=== PATIENT | male | born 1955 | race Caucasian/White ===

== ENCOUNTER 2017-02-13 09:57 | Emergency (ER) | payer OTHER ==
[~2017-02-13] VITALS: Ht 170.1 cm; Wt 61.2 kg
[~2017-02-13 09:57] MED LIST: ATARAX,VISTARIL50 MG PO; KENALOG 0.1%80 GM PO; PREDNISONE10 MG PO
[2017-02-13] MEDS ORDERED: ZITHROMAX250 MG PO (10:54)
== END 2017-02-13 11:21 | disposition home or self-care (01) ==
LOC: ED 09:57
DX: J40 Bronchitis, not specified as acute or chronic (principal)

== ENCOUNTER → 2017-07-21 | Emergency (ER) | payer OTHER ==
[~2017-07-21] VITALS: Ht 170.1 cm; Wt 54.4 kg
[~2017-07-21] MED LIST changes: +ZITHROMAX250 MG PO
[2017-07-21 15:54] LABS: BASO % 0.2 % (0.0-1.0); EOS # 0.1 10*3/uL (0.0-0.4); EOS % 0.7 % (1.0-4.0); HEMATOCRIT 46.4 % (42.0-52.0); HEMOGLOBIN 15.4 g/dl (14.0-18.0); LYMPH # 1.9 10*3/uL (1.3-4.4); MEAN CELL VOLUME 94.1 fl (80.0-94.0); MEAN CORPUSCULAR HGB 31.2 pg (27.0-31.0); MEAN CORPUSCULAR HGB CONC 33.2 g/dl (33.0-37.0); MEAN PLATELET VOLUME 9.3 fl (9.6-12.3); MONO # 0.4 10*3/uL (0.1-1.0); MONO % 5.3 % (3.0-9.0); NEUT # 5.7 10*3/uL (2.3-7.9); NEUT % 70.6 % (47.0-73.0); PLATELET COUNT AUTOMATED 160 10*3/uL (130-400); RED BLOOD COUNT 4.93 10*6/uL (4.50-5.90); RED CELL DISTRI WIDTH 12.9 % (0-14.5); WHITE BLOOD COUNT 8.1 10*3/uL (4.8-10.8)
[2017-07-21 16:03] LABS: ACT PARTIAL THROMBO TIME 24.4 SECONDS (20.8-31.5)
[2017-07-21 16:09] LABS: ALBUMIN 4.4 gm/dl (3.1-4.5); ALKALINE PHOSPHATASE 90 U/L (45-117); BUN 8 mg/dl (7-24); CHLORIDE 108 mmol/L (98-107); MAGNESIUM 2.2 mg/dL (1.5-2.1); POTASSIUM 4.1 mmol/L (3.5-5.1); SGOT/AST 62 IU/L (3-35); SGPT/ALT 21 U/L (12-78); SODIUM 144 mmol/L (136-145); TOTAL PROTEIN 8.2 gm/dL (6.4-8.2); TROPONIN I < 0.015 ng/ml (<0.045)
== END ==
LOC: ED 15:44
PROVIDERS: Emergency Medicine
DX: R07.9 Chest pain, unspecified (principal); R10.11 Right upper quadrant pain; R06.02 Shortness of breath

== ENCOUNTER 2022-05-08 09:18 | Emergency (ER) | payer MEDICARE, OTHER ==
[~2022-05-08] VITALS: Ht 170.1 cm; Wt 58.1 kg
[2022-05-08] MEDS ORDERED: PREDNISONE50 MG PO (09:37)
== END 2022-05-08 10:00 | disposition home or self-care (01) ==
LOC: ED 09:18
DX: R21 Rash and other nonspecific skin eruption (principal)

== ENCOUNTER 2023-04-28 18:22 | Emergency (ER) | payer MEDICARE, OTHER ==
[~2023-04-28 18:22] MED LIST changes: +PREDNISONE50 MG PO
[2023-04-28 18:53] LABS: BASO % 0.3 % (0.0-1.0); EOS # 0.2 10*3/uL (0.0-0.4); EOS % 2.6 % (1.0-4.0); HEMATOCRIT 43.9 % (42.0-52.0); LYMPH # 1.5 10*3/uL (1.3-4.4); LYMPH % 25.9 % (27.0-41.0); MEAN CELL VOLUME 91.5 fl (80.0-94.0); MEAN CORPUSCULAR HGB 31.9 pg (27.0-31.0); MEAN CORPUSCULAR HGB CONC 34.9 g/dl (33.0-37.0); MEAN PLATELET VOLUME 8.7 fl (9.6-12.3); MONO # 0.3 10*3/uL (0.1-1.0); MONO % 5.8 % (3.0-9.0); NEUT # 3.8 10*3/uL (2.3-7.9); NEUT % 65.2 % (47.0-73.0); PLATELET COUNT AUTOMATED 148 10*3/uL (130-400); RED CELL DISTRI WIDTH 12.6 % (0-14.5); WHITE BLOOD COUNT 5.9 10*3/uL (4.8-10.8)
[2023-04-28 19:21] LABS: ALKALINE PHOSPHATASE 68 U/L (46-116); BUN 5 mg/dl (9-23); CHLORIDE 100 mmol/L (98-107); POTASSIUM 3.7 mmol/L (3.4-5.1); SGPT/ALT 14 U/L (10-49)
== END 2023-04-28 23:04 | disposition home or self-care (01) ==
LOC: ED 18:22
PROVIDERS: Nurse Practitioner Family
DX: S01.01XA Laceration without foreign body of scalp, initial encounter (principal); S09.90XA Unspecified injury of head, initial encounter; F10.129 Alcohol abuse with intoxication, unspecified; Y90.4 Blood alcohol level of 80-99 mg/100 ml; Z79.899 Other long term (current) drug therapy; W01.10XA Fall on same level from slipping, tripping and stumbling with subsequent striking against unspecified object, initial encounter; Y93.01 Activity, walking, marching and hiking; Y92.89 Other specified places as the place of occurrence of the external cause; Y99.8 Other external cause status

== ENCOUNTER 2023-05-07 09:17 | Emergency (ER) | payer MEDICARE, OTHER ==
[~2023-05-07] VITALS: Ht 170.1 cm; Wt 56.7 kg
== END 2023-05-07 11:22 | disposition home or self-care (01) ==
LOC: ED 09:17
DX: S01.01XD Laceration without foreign body of scalp, subsequent encounter (principal); X58.XXXD Exposure to other specified factors, subsequent encounter

== ENCOUNTER 2024-09-21 12:50 | Emergency (ER) | payer MEDICARE, OTHER ==
[~2024-09-21] VITALS: Ht 170.1 cm; Wt 59.0 kg
[2024-09-21] MEDS ORDERED: DOCUSATE SODIUM 100 MG/10 ML UDC OT ONE (13:05)
== END 2024-09-21 14:49 | disposition home or self-care (01) ==
LOC: ED 12:50
DX: H61.21 Impacted cerumen, right ear (principal); Z98.890 Other specified postprocedural states